=== PATIENT | male | born 1945 | race Caucasian/White ===

== ENCOUNTER 2022-08-01 13:22 | Emergency (ER) | payer MEDICARE, SELFPAY ==
--- NOTE | 2022-08-01 13:24 | ED.URI ---
HPI - URI/Sore Throat General Chief Complaint: Upper Respiratory Infection Stated Complaint: CHILLS/TIRED/SLIGHT SORE THROAT Time Seen by Provider: 08/01/22 13:24 Source: patient and RN notes reviewed History of Present Illness HPI Narrative: Patient is a 77-year-old male who presents the urgent care with complaints of slight fatigue and mild sore throat. Patient states that his spouse was seen at the facility earlier and was tested positive for COVID and he was told by his to come to the facility and be evaluated . Patient states his symptoms started on Saturday evening and he had 1 night of some chills and sweats and 1 day of extreme fatigue. Patient states that he feels much better today and actually went to work this morning. Patient states that he had a mild sore throat for the last couple days and has not been taking anything [id number] for his symptoms. Patient is aware that he is presumed COVID-positive. Denies of any cough, shortness of breath or chest pain. No other acute complaints. No acute distress noted. Patient aware of the plan of care. Some parts of this dictation were generated by voice recognition software and may contain typographical and/or grammatical inaccuracies. Related Data Home Medications Medication Instructions Recorded Confirmed gabapentin 300 mg capsule mg 08/01/22 lisinopril 10 mg tablet mg 08/01/22 ropinirole 0.25 mg tablet mg 08/01/22 rosuvastatin 10 mg tablet mg 08/01/22 Allergies Allergy/AdvReac Type Severity Reaction Status Date / Time No Known Allergies Allergy Unverified 05/25/20 09:09 Review of Systems Review of Systems: CONSTITUTIONAL: Denies fever, chills, or sweats. Reports of slight fatigue EYES: Denies visual changes, redness, or discharge. ENT: Denies rhinorrhea, congestion, otalgia. Reports a mild sore throat CARDIOVASCULAR: Denies chest pain, palpitations, or edema. RESPIRATORY: Denies cough or dyspnea. GASTROINTESTINAL: Denies abdominal pain, nausea, vomiting, or diarrhea. GENITOURINARY: Denies dysuria or hematuria. SKIN: Denies rash or itching. MUSCULOSKELETAL: Denies back pain, joint pain, or myalgia. NEUROLOGIC: Denies headache, numbness, or weakness. All other systems reviewed are negative, except as documented in HPI. FORMERLY [facility], 1928–1983 Social History Social History (System 05/25/20 @ 09:09 by All Husain) Smoking status: Never smoker Alcohol intake: current Comments At the time of my signature, I reviewed and agree with the nursing past medical, surgical, social, and family history. There is no relevant family history pertinent to the patient complaint. Exam Narrative: GENERAL: This is a well-nourished, well-developed patient, in no apparent distress. HEAD: normocephalic, atraumatic. EYES: PERRL. Sclera clear/white. Vision is grossly intact. EARS: External ears normal, auditory canals clear and without drainage, TMs normal without perforation. Hearing grossly intact. NOSE: External nose normal with no obvious nasal discharge, nares without redness, no rhinorrhea. THROAT: Mucous membranes moist, posterior pharynx clear. Mild postnasal drainage NECK: Neck supple, non-tender without lymphadenopathy CARDIOVASCULAR: Regular rate and rhythm without murmurs, gallops, or rubs. RESPIRATORY: Clear to auscultation. Breath sounds equal bilaterally. No wheezes, rales, or rhonchi. SKIN: warm, intact with no suspicious lesions or rash, good texture and turgor. NEURO: awake, alert, and oriented to person, place and time. There were no obvious focal neurologic abnormalities. EXTREMITIES: No clubbing, cyanosis, or edema. Course Course Level of Care: Express Care Visit Vital Signs Vital signs: Vital Signs Temperature 98.9 F 08/01/22 13:32 Pulse Rate 79 08/01/22 13:32 Respiratory Rate 16 08/01/22 13:32 Blood Pressure 129/89 08/01/22 13:32 Pulse Oximetry 79 L 08/01/22 13:32 Temperature 98.9 F 08/01/22 13:32 Pulse Rate 79 08/01/22 13
[2022-08-01 13:32] VITALS: BP 129/89; PULSE 79; RESP 16; TEMP 37.2; O2SAT 79
== END 2022-08-01 13:54 | disposition home or self-care (01) ==
PROVIDERS: Emergency Provider Nurse Practitioner Family
DX: Z20.822 Contact with and (suspected) exposure to COVID-19 (principal)
CPT/HCPCS: 99211; G0463